=== PATIENT | female | born 1965 | race Two or more races ===

== ENCOUNTER 2023-01-27 20:10 | Emergency (ER) | payer OTHER ==
[~2023-01-27] VITALS: Ht 152.4 cm; Wt 76.2 kg
[2023-01-27] MEDS ORDERED: ZOCOR20 MG PO (20:43)
[2023-01-27 21:43] LABS: HEMATOCRIT 39.6 % (36.0-45.00); HEMOGLOBIN 13.2 g/dL (12.0-15.00); MEAN CELL VOLUME 86.5 fL (80.00-100.00); MEAN CORPUSCULAR HEMOGLOBIN 28.9 pg (27.00-32.0); MEAN CORPUSCULAR HGB CONC 33.4 g/dl (32.0-36.0); PLATELET COUNT 343 K/uL (150-450); RED BLOOD COUNT 4.58 M/uL (4.00-6.00); RED CELL DISTRIBUTION WIDTH 13.6 % (11.5-14.5)
[2023-01-27 22:01] LABS: INR 0.99; PARTIAL THROMBOPLASTIN TIME 30.6 SECONDS (22.0-34.0); PROTHROMBIN TIME 10.4 SECONDS (9.0-11.5)
[2023-01-27 22:27] LABS: CALCIUM 9.2 mg/dL (8.5-10.1); CREATININE SERUM 0.87 mg/dL (0.55-1.02); GFR 67.6; POTASSIUM 4.07 mEq/L (3.5-5.1)
[2023-01-27] MEDS ORDERED: DOLOGESIC 500-1 EACH PO (22:43)
[2023-01-27] MEDS ORDERED: NORFLEX100MG PO (22:43)
== END 2023-01-27 22:51 | disposition home or self-care (01) ==
LOC: ER 20:46
PROVIDERS: General Practice
DX: B34.9 Viral infection, unspecified (principal); R07.89 Other chest pain; R10.9 Unspecified abdominal pain; Z20.822 Contact with and (suspected) exposure to COVID-19; Z91.018 Allergy to other foods